=== PATIENT | female | born 1970 | race American Indian/Alaskan Native ===

== ENCOUNTER 2016-08-29 12:39 | Emergency (ER) | payer SELFPAY ==
[2016-08-29 12:50] VITALS: TEMP 98.8
[2016-08-29] MEDS ORDERED: Sodium Chloride 0.9% 2,000 ML IV STA (14:00)
--- NOTE | 2016-08-29 14:02 | ED PDOC ---
Arrival/HPI - General Chief Complaint: GI Problem Time Seen by Provider: 08/29/16 12:59 Historian: Patient - History of Present Illness Narrative History of Present Illness (Text): 08/29/16 14:04 A 46 year old female, whose past medical history includes hypertension, presents to the emergency department complaining of weakness, slight headache and thirst while working outside in the heat today. Patient denies any other complaints at this time. Symptom Onset: Sudden Symptom Course: Unchanged Activities at Onset: Light Context: Work Past Medical History - Provider Review Nursing Documentation Reviewed: Yes - Infectious Disease Hx of Infectious Diseases: None - Cardiac Hx Hypertension: Yes - Psychiatric Hx Substance Use: No - Surgical History Hx Tubal Ligation: Yes Other/Comment: hernia surgery as per patient - Anesthesia Hx Anesthesia: Yes Hx Anesthesia Reactions: No Hx Malignant Hyperthermia: No Family/Social History - Physician Review Nursing Documentation Reviewed: Yes Family/Social History: No Known Family HX Smoking Status: Never Smoked Hx Alcohol Use: No Hx Substance Use: No Allergies/Home Meds Allergies/Adverse Reactions: Allergies No Known Allergies Allergy (Verified 08/29/16 12:46) Home Medications: Home Meds Medication Instructions Recorded Confirmed amLODIPine [Norvasc] 5 mg PO DAILY 08/29/16 08/29/16 Physical Exam - Physical Exam Narrative Physical Exam (Text): 08/29/16 14:03- Review of Systems Constitutional: Present: dizziness, weakness absent: Weight Change, Fevers Eyes: Normal ENT: Normal Respiratory: Normal absent: SOB, Cough, Sputum Cardiovascular: Normal absent: Chest pain, Palpitations, Syncope Gastrointestinal: absent: Abdominal pain, Diarrhea, Nausea, vomiting Genitourinary: Normal. absent: Dysuria, Frequency, Hematuria Musculoskeletal: Normal. absent: Arthralgias, Back Pain, Neck Pain Skin: Normal Neurological: Present: headache absent: Focal Weakness Endocrine: Normal Hemo/Lymphatic: Normal Psychiatric: Normal - Physical exam Patient appears age appropriate, speaking full sentences without difficulty - Systems Exam Head: Present: Atraumatic, Normocephalic Pupils: Present: PERRL Extraocular Muscles: Present: EOMI Conjunctiva: Present: Normal Mouth: Present: Moist Mucous Membranes Neck: Present: Normal Range of Motion. No: MIDLINE TENDERNESS, Paraspinal Tenderness Respiratory/Chest: Present: Clear to Auscultation, Good Air Exchange. No: Respiratory Distress, Accessory Muscle Use, Tachypnic Cardiovascular: Present: Regular Rate and Rhythm, Normal S1, S2, Peripheral Pulses Present. No: Murmurs Abdomen: Present: Normal Bowel Sounds, No: Tenderness, Peritoneal Signs, Rebound, Guarding, Distention Back: Present: Normal Inspection. No: Midline Tenderness, Paraspinal Tenderness Upper Extremity: Present: Normal Inspection. No: Cyanosis, Edema Lower Extremity: Present: Normal Inspection. No: Edema Neurological: Present: GCS=15, Speech Normal, cranial nerves II through XII fully intact with no cerebellar abnormality, neuro-sensory fully intact. No focal neurological deficits. Skin: Present: Warm, Dry, Normal Color. No: Rashes Lymphatic: Present: OX3, NI, NC Psychiatric: Present: Alert, Oriented x 3, Normal Insight, Normal Concentration Vital Signs Reviewed: Yes Vital Signs Temp Pulse Resp BP Pulse Ox 08/29/16 15:29 80 16 115/71 100 08/29/16 14:17 89 18 116/79 99 08/29/16 12:49 98.8 F 93 H 19 118/82 99 Temperature: Afebrile Blood Pressure: Normal Pulse: Regular Respiratory Rate: Normal Appearance: Positive for: Well-Appearing, Non-Toxic, Comfortable Pain Distress: None Mental Status: Positive for: Alert and Oriented X 3 Medical Decision Making ED Course and Treatment: 08/29/16 14:01 Impression: A 46 year old female, whose past medical history includes hypertension, presents to the emergency department complaining of weakness, slight headache and thirst while working outside in the heat today. No acute findings on physical exam. Differential Diagnosis included but are not limited to: dehydration vs. heat exhaustion Plan: -- labs -- IV fluids -- Reassess and disposition Prior Visits: Notes and results from previous visits were reviewed. Patient last reported to the emergency department on 07/15/16 for evaluation of mid sternal chest pain. Progress Notes: 08/29/16 15:49 on reevaluation, pt states she feels much better. Denies weakness, dizziness, states her ECHOLS resolved. States she feels comfortable being dc'd home with outpatient f/u Pt states she understands to return to the ER right away for new or worsening symptoms or for inability to f/u with PMD or specialist as instructed. Patient states that she fully agrees with and understands discharge instructions. States that she agrees with the plan and disposition. Verbalized and repeated discharge instructions and plan. I have given the patient opportunity to ask any additional questions. - Lab Interpretations Lab Results: 08/29/16 14:10 08/29/16 14:10 Lab Results 08/29/16 14:10: Sodium 138, Potassium 4.0, Chloride 103, Carbon Dioxide 25, Anion Gap 14, BUN 19, Creatinine 0.9, Est GFR ( Amer) > 60, Est GFR (Non- Af Amer) > 60, Random Glucose 87, Calcium 9.7, Total Bilirubin 0.3, AST 19, ALT 24, Alkaline Phosphatase 48, Total Creatine Kinase 243 H, CK-MB (CK-2) 0.3, CK- MB (CK-2) % Cancelled, Total Protein 7.5, Albumin 4.1, Globulin 3.3, Albumin/ Globulin Ratio 1.2 08/29/16 14:10: PT 10.4, INR 0.96, APTT 25.8 08/29/16 14:10: WBC 7.0 D, RBC 3.62, Hgb 11.1 L, Hct 32.9 L, MCV 90.9, MCH 30.7 , MCHC 33.7, RDW 12.5, Plt Count 225, MPV 9.4, Gran % 63.0, Lymph % (Auto) 30.0 , Rawlins % (Auto) 6.5 H, Eos % (Auto) 0.4 L, Baso % (Auto) 0.1, Gran # 4.38, Lymph # 2.1, Rawlins # 0.5, Eos # 0.0, Baso # 0.01 I have reviewed the lab results: Yes - Medication Orders Current Medication Orders: Sodium Chloride (Sodium Chloride 0.9%) 2,000 mls @ 1,000 mls/hr IV .Q2H STA Stop: 08/29/16 15:59 Last Admin: 08/29/16 14:33 Dose: 1,000 mls/hr - Scribe Statement The provider has reviewed the documentation as recorded by the Vandana Perez Provider Scribe Attestation: All medical record entries made by the Scribe were at my direction and personally dictated by me. I have reviewed the chart and agree that the record accurately reflects my personal performance of the history, physical exam, medical decision making, and the department course for this patient. I have also personally directed, reviewed, and agree with the discharge instructions and disposition. Disposition/Present on Arrival - Present on Arrival Any Indicators Present on Arrival: No History of DVT/PE: No History of Uncontrolled Diabetes: No Urinary Catheter: No History of Decub. Ulcer: No History Surgical Site Infection Following: None - Disposition Have Diagnosis and Disposition been Completed?: Yes Diagnosis: Dehydration Disposition: HOME/ ROUTINE Disposition Time: 15:51 Patient Plan: Discharge Condition: GOOD Discharge Instructions (ExitCare): Heat Exhaustion (ED), Dehydration (ED) Additional Instructions: PLEASE RETURN TO THE EMERGENCY DEPARTMENT FOR NEW OR WORSENING SYMPTOMS. RETURN RIGHT AWAY IF YOU CANNOT FOLLOW UP WITH YOUR PRIMARY CARE DOCTOR, CLINIC, OR SPECIALIST IN 1-2 DAYS. Referrals: Elijah Shannon Jr., MD [Primary Care Provider] - Follow up with primary Forms: WORK NOTE
[2016-08-29 14:21] LABS: ADD MANUAL DIFF? NO
[2016-08-29 14:28] LABS: BASO # 0.01 K/mm3 (0.0-2.0); BASO % 0.1 % (0.0-3.0); EOS % 0.4 % (1.5-5.0); GRAN # 4.38 (1.4-6.5); HEMATOCRIT 32.9 % (36.0-48.0); LYMPH # 2.1 (1.2-3.4); MEAN CELL VOLUME 90.9 fL (80.0-105.0); MEAN CORPUSCULAR HEMOGLOBIN 30.7 pg (25.0-35.0); MEAN CORPUSCULAR HGB CONC 33.7 g/dl (31.0-37.0); MEAN PLATELET VOLUME 9.4 fl (7.0-11.0); MONO # 0.5 (0.1-0.6); MONO % 6.5 % (1.0-6.0); PLATELET COUNT 225 10^3/uL (120.0-450.0); RED CELL DISTRIBUTION WIDTH 12.5 % (11.5-14.5)
[2016-08-29 14:33] LABS: ALB/GLOB RATIO 1.2 (1.1-1.8); ALKALINE PHOSPHATASE 48 U/L (38-133); ALT/SGPT 24 U/L (7-56); AST/SGOT 19 U/L (15-39); BILIRUBIN,TOTAL 0.3 mg/dL (0.2-1.3); BLOOD UREA NITROGEN 19 mg/dL (7-21); CALCIUM 9.7 mg/dL (8.4-10.5); CARBON DIOXIDE 25 mmol/L (21-33); CHLORIDE 103 mmol/L (98-107); GFR AFRICAN-AMERICAN > 60; GLUCOSE,RANDOM 87 mg/dL (70-110); SODIUM 138 mmol/L (132-148); TOTAL PROTEIN 7.5 g/dL (5.8-8.3)
[2016-08-29 14:39] LABS: INR 0.96 (0.93-1.08); PARTIAL THROMBOPLASTIN TIME 25.8 Seconds (23.7-30.8)
[2016-08-29 15:30] VITALS: PULSE 80
[2016-08-29 15:32] VITALS: BP 115/71
[2016-08-29 16:00] VITALS: RESP 18; O2SAT 99
== END 2016-08-29 16:00 | disposition home or self-care (01) ==
LOC: ED 12:39
DX: E86.0 Dehydration (principal)
CPT/HCPCS: 80053; 82550; 82553; 85025; 85610; 85730; 99284; J7040

== ENCOUNTER 2016-11-16 06:26 | Emergency (ER) | payer MEDICAID, OTHER ==
[2016-11-16 06:38] VITALS: RESP 18
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
[2016-11-16] MEDS ORDERED: Naproxen 550 mg Tab PO STA (08:04)
[2016-11-16 08:27] VITALS: BP 109/62; PULSE 84; TEMP 98.1; O2SAT 100
--- NOTE | 2016-11-16 08:58 | RAD ---
PROCEDURE: Radiographs of the Right Shoulder HISTORY: shoulder pain COMPARISON: No prior. FINDINGS: BONES: Normal. No fracture. JOINTS: Normal. Glenohumeral and acromioclavicular joints preserved. No osteoarthritis. SOFT TISSUES: Normal. OTHER FINDINGS: None. IMPRESSION: Normal radiographs of the right shoulder.
== END 2016-11-16 09:18 | disposition home or self-care (01) ==
LOC: ED 06:26
DX: M25.511 Pain in right shoulder (principal); I10 Essential (primary) hypertension

== ENCOUNTER 2017-01-14 22:06 | Emergency (ER) | payer OTHER ==
[2017-01-14 22:19] VITALS: BMI 34.1
[2017-01-14 22:20] VITALS: BP 142/84; PULSE 101; RESP 16; O2SAT 99
--- NOTE | 2017-01-14 22:39 | ED PDOC ---
Arrival/HPI - General Time Seen by Provider: 01/14/17 22:13 Historian: Patient - History of Present Illness Narrative History of Present Illness (Text): 01/14/17 22:15 Lauren Decker is a 46 year old female, whose past medical history includes hypertension, who presents to the emergency department complaining of mild intermittent dizziness of the past few days. Patient states that she was on amlodipine 5 mg but has been non-compliant with medication because she ran out. Patient states that she presents to the emergency department because she wants a refill of her medications and is not interested in any workup, EKG, or blood tests. Of note, patient has worked through the weekend uneventfully with her full 8-10 hours shifts. Patient denies any association with pre-syncopal lightheadedness, vertigo, vomiting, chest pain, nausea, neurological deficit, palpitations, or any other complaints at this time. Time/Duration: < week Symptom Onset: Gradual Symptom Course: Intermittent Activities at Onset: Light Context: Home Past Medical History - Provider Review Nursing Documentation Reviewed: Yes - Travel History Have you recently traveled outside [place] w/in the past 3 mons?: No - Infectious Disease Hx of Infectious Diseases: None - Cardiac Hx Hypertension: Yes - Psychiatric Hx Substance Use: No - Surgical History Hx Tubal Ligation: Yes Other/Comment: hernia surgery as per patient - Anesthesia Hx Anesthesia: Yes Hx Anesthesia Reactions: No Hx Malignant Hyperthermia: No Family/Social History - Physician Review Nursing Documentation Reviewed: Yes Family/Social History: No Known Family HX Smoking Status: Never Smoked Hx Alcohol Use: No Hx Substance Use: No Allergies/Home Meds Allergies/Adverse Reactions: Allergies No Known Allergies Allergy (Verified 01/14/17 22:21) Home Medications: Home Meds Medication Instructions Recorded Confirmed amLODIPine [Norvasc] 5 mg PO DAILY 08/29/16 01/14/17 Review of Systems - Physician Review All systems were reviewed & negative as marked: Yes - Review of Systems Constitutional: absent: Fevers, Night Sweats Eyes: absent: Vision Changes ENT: absent: Hearing Changes Respiratory: absent: SOB, Cough Cardiovascular: absent: Chest Pain Gastrointestinal: Vomiting (several episodes on ()), Other ( Positive sick person contact with similar symptoms at work). absent: Abdominal Pain, Hematemesis Genitourinary Female: absent: Dysuria, Frequency Musculoskeletal: absent: Arthralgias, Back Pain Skin: absent: Rash, Pruritis Neurological: Dizziness (for 3 days) Endocrine: absent: Diaphoresis Hemo/Lymphatic: absent: Adenopathy Physical Exam Vital Signs Reviewed: Yes Vital Signs Pulse Resp BP Pulse Ox 01/14/17 22:19 101 H 16 142/84 99 Blood Pressure: Normal Pulse: Tachycardic (146/84 with pulse of 94 while sitting and standing, 148/94 with a pulse of a 98) Respiratory Rate: Normal Appearance: Positive for: Well-Appearing, Non-Toxic, Comfortable Pain Distress: None Mental Status: Positive for: Alert and Oriented X 3 - Systems Exam Head: Present: Atraumatic, Normocephalic Pupils: Present: PERRL Extroacular Muscles: Present: EOMI Conjunctiva: Present: Normal Mouth: Present: Moist Mucous Membranes Neck: Present: Normal Range of Motion Respiratory/Chest: Present: Clear to Auscultation, Good Air Exchange. No: Respiratory Distress, Accessory Muscle Use Cardiovascular: Present: Regular Rate and Rhythm, Normal S1, S2. No: Murmurs Abdomen: Present: Normal Bowel Sounds. No: Tenderness, Distention, Peritoneal Signs Back: Present: Normal Inspection Upper Extremity: Present: Normal Inspection. No: Cyanosis, Edema Lower Extremity: Present: Normal Inspection. No: Edema Neurological: Present: GCS=15, CN II-XII Intact, Speech Normal Skin: Present: Warm, Dry, Normal Color. No: Rashes Psychiatric: Present: Alert, Oriented x 3, Normal Insight, Normal Concentration Medical Decision Making ED Course and Treatment: 01/14/17 22:43 Impression: 46 year old female complaining of mild intermittent dizziness for a few days. Plan: -- Norvasc -- Discharge Progress Notes: 01/14/17 22:46 Patient was dosed and admits to less drinking and less hydration than normal. Stable for discharge - Medication Orders Current Medication Orders: Discontinued Medications Amlodipine Besylate (Norvasc) 5 mg PO STAT STA Stop: 01/14/17 22:28 Last Admin: 01/14/17 22:42 Dose: 5 mg - Scribe Statement The provider has reviewed the documentation as recorded by the Vandana Masters Provider Scribe Attestation: All medical record entries made by the Idrisibkira were at my direction and personally dictated by me. I have reviewed the chart and agree that the record accurately reflects my personal performance of the history, physical exam, medical decision making, and the department course for this patient. I have also personally directed, reviewed, and agree with the discharge instructions and disposition. Disposition/Present on Arrival - Present on Arrival Any Indicators Present on Arrival: No History of DVT/PE: No History of Uncontrolled Diabetes: No Urinary Catheter: No History Surgical Site Infection Following: None - Disposition Have Diagnosis and Disposition been Completed?: Yes Diagnosis: Hypertension, Medication refill Disposition: HOME/ ROUTINE Disposition Time: 22:30 Patient Plan: Discharge Condition: GOOD Discharge Instructions (ExitCare): Hypertension (DC) Print Language: BURMESE Additional Instructions: When dizziy drink more water, when your urine trends clearish in color you are likley more sufficiently hydrated, and you will find dizziness improved. Prescriptions: amLODIPine [Norvasc] 5 mg PO DAILY #30 tab Referrals: Elijah Shannon Jr., MD [Primary Care Provider] - Follow up with primary Forms: Digg (Libyan)
== END 2017-01-14 23:10 | disposition home or self-care (01) ==
LOC: ED 22:06
DX: I10 Essential (primary) hypertension (principal); Z76.0 Encounter for issue of repeat prescription; Z98.51 Tubal ligation status

== ENCOUNTER 2017-10-01 15:05 | Emergency (ER) | payer MEDICAID, OTHER ==
[2017-10-01 15:05] VITALS: BMI 34.1
[2017-10-01 15:29] VITALS: RESP 18
--- NOTE | 2017-10-01 15:49 | ED PDOC ---
Arrival/HPI - General Chief Complaint: Headache Time Seen by Provider: 10/01/17 15:12 Historian: Patient - History of Present Illness Narrative History of Present Illness (Text): 10/01/17 15:42 47yo female with pmhx of hypertension who present to ED requesting refill of her antihypertensives. States she ran out of her medications 2days ago and had headache last night and vomited once last night. Notes that the headache and vomiting resolved last night, but she came to ED for prescriptions. She denies any current headache, neck pain, chest pain, focal weakness, slurred speech, visual changes, nausea, vomiting, abdominal pain, any other complaint. Past Medical History - Provider Review Nursing Documentation Reviewed: Yes - Infectious Disease Hx of Infectious Diseases: None - Reproductive Menopause: No - Cardiac Hx Cardiac Disorders: Yes Hx Hypertension: Yes - Pulmonary Hx Respiratory Disorders: No - Neurological Hx Neurological Disorder: No - HEENT Hx HEENT Disorder: No - Renal Hx Renal Disorder: No - Endocrine/Metabolic Hx Endocrine Disorders: No - Hematological/Oncological Hx Blood Disorders: No - Integumentary Hx Dermatological Disorder: No - Musculoskeletal/Rheumatological Hx Musculoskeletal Disorders: No Hx Falls: No - Gastrointestinal Hx Gastrointestinal Disorders: No - Genitourinary/Gynecological Hx Genitourinary Disorders: No - Psychiatric Hx Psychophysiologic Disorder: No Hx Substance Use: No - Surgical History Hx Tubal Ligation: Yes Other/Comment: hernia surgery as per patient - Anesthesia Hx Anesthesia: Yes Hx Anesthesia Reactions: No Hx Malignant Hyperthermia: No Family/Social History - Physician Review Nursing Documentation Reviewed: Yes Family/Social History: Unknown Family HX Smoking Status: Never Smoked Hx Alcohol Use: No Hx Substance Use: No Allergies/Home Meds Allergies/Adverse Reactions: Allergies acetaminophen [From Tylenol] Allergy (Severe, Verified 10/01/17 15:22) ANAPHYLAXIS Home Medications: Home Meds Medication Instructions Recorded Confirmed Amlodipine Besylate 10 mg PO DAILY 10/01/17 10/01/17 Isosorbide Mononitrate ER [Imdur 30 mg PO DAILY 10/01/17 10/01/17 ER] Review of Systems - Physician Review All systems were reviewed & negative as marked: Yes - Review of Systems Constitutional: Normal, Other (Blood pressure medication refill) Eyes: Normal ENT: Normal Respiratory: Normal Cardiovascular: Normal Gastrointestinal: Normal Genitourinary Female: Normal Musculoskeletal: Normal Skin: Normal Neurological: Normal Endocrine: Normal Hemo/Lymphatic: Normal Psychiatric: Normal Physical Exam Vital Signs Reviewed: Yes Vital Signs Temp Pulse Resp BP Pulse Ox 10/01/17 15:19 99.4 F 88 18 133/90 100 Temperature: Afebrile Blood Pressure: Normal Pulse: Regular Respiratory Rate: Normal Appearance: Positive for: Well-Appearing, Non-Toxic, Comfortable Pain Distress: None Mental Status: Positive for: Alert and Oriented X 3 - Systems Exam Head: Present: Atraumatic, Normocephalic Pupils: Present: PERRL Extroacular Muscles: Present: EOMI Conjunctiva: Present: Normal Mouth: Present: Moist Mucous Membranes Neck: Present: Normal Range of Motion Respiratory/Chest: Present: Clear to Auscultation, Good Air Exchange. No: Respiratory Distress, Accessory Muscle Use Cardiovascular: Present: Regular Rate and Rhythm, Normal S1, S2. No: Murmurs Abdomen: No: Tenderness, Distention, Peritoneal Signs Back: Present: Normal Inspection Upper Extremity: Present: Normal Inspection. No: Cyanosis, Edema Lower Extremity: Present: Normal Inspection. No: Edema Neurological: Present: GCS=15, CN II-XII Intact, Speech Normal Skin: Present: Warm, Dry, Normal Color. No: Rashes Psychiatric: Present: Alert, Oriented x 3, Normal Insight, Normal Concentration Disposition/Present on Arrival - Present on Arrival Any Indicators Present on Arrival: No History of DVT/PE: No History of Uncontrolled Diabetes: No Urinary Catheter: No History of Decub. Ulcer: No History Surgical Site Infection Following: None - Disposition Have Diagnosis and Disposition been Completed?: Yes Diagnosis: Medication refill, Hypertension Disposition: HOME/ ROUTINE Disposition Time: 15:55 Patient Plan: Discharge Condition: STABLE Discharge Instructions (ExitCare): High Blood Pressure in Adults Additional Instructions: Take medication as directed Follow up with your Doctor Return to ED for any new or worsening symptoms Prescriptions: amLODIPine [Norvasc] 5 mg PO DAILY #20 tab Metoprolol Succinate [Toprol Xl] 50 mg PO DAILY #20 tab.er.24h Referrals: Elijah Shannon Jr., MD [Primary Care Provider] - Follow up with primary
[2017-10-01 16:09] VITALS: BP 131/85; PULSE 79; TEMP 98.7; O2SAT 99
== END 2017-10-01 16:26 | disposition home or self-care (01) ==
LOC: ED 15:05
DX: Z76.0 Encounter for issue of repeat prescription (principal); I10 Essential (primary) hypertension

== ENCOUNTER 2017-12-12 14:31 | Emergency (ER) | payer SELFPAY ==
[2017-12-12 14:32] VITALS: BMI 34.1
[2017-12-12 14:43] VITALS: TEMP 98.2
[2017-12-12] MEDS ORDERED: Albuterol 0.083% Inhal Sol (2.5 mg/3 mL) UD IH STA (15:21)
--- NOTE | 2017-12-12 15:25 | ED PDOC ---
Arrival/HPI - General Historian: Patient - History of Present Illness Narrative History of Present Illness (Text): 12/12/17 47 yo female w/PMHx of HTN come in for evaluation of cold sx for past 2-3 days associated with nasal congestion, runny nose, sore throat and dry cough. Pt reports, " pain in throat abd cough have worsen". Pt admits, similar x in family member. Otherwise, pt denies high fever, chills, headache, dizziness, drooling, dyspnea, CP, SOB, wheezing, abd. pain, V/D, back pain, UTI sx. Ambulate to Ed for evaluation, not in any apparent distress. <Aicha Dixon - Last Filed: 12/12/17 16:55> <Coleman Marcelino - Last Filed: 12/12/17 17:54> - General Chief Complaint: Flu-like Symptoms Time Seen by Provider: 12/12/17 15:20 Past Medical History - Provider Review Nursing Documentation Reviewed: Yes - Travel History Have you recently traveled outside [place] w/in the past 3 mons?: No - Infectious Disease Hx of Infectious Diseases: None - Cardiac Hx Cardiac Disorders: Yes Hx Hypertension: Yes - Pulmonary Hx Respiratory Disorders: No - Neurological Hx Neurological Disorder: No - HEENT Hx HEENT Disorder: No - Renal Hx Renal Disorder: No - Endocrine/Metabolic Hx Endocrine Disorders: No - Hematological/Oncological Hx Blood Disorders: No - Integumentary Hx Dermatological Disorder: No - Musculoskeletal/Rheumatological Hx Musculoskeletal Disorders: No Hx Falls: No - Gastrointestinal Hx Gastrointestinal Disorders: No - Genitourinary/Gynecological Hx Genitourinary Disorders: No - Psychiatric Hx Psychophysiologic Disorder: No Hx Substance Use: No - Surgical History Hx Tubal Ligation: Yes - Anesthesia Hx Anesthesia: Yes Hx Anesthesia Reactions: No Hx Malignant Hyperthermia: No <Aicha Dixon - Last Filed: 12/12/17 16:55> Family/Social History - Physician Review Nursing Documentation Reviewed: Yes Family/Social History: No Known Family HX Smoking Status: Never Smoked Hx Alcohol Use: No Hx Substance Use: No <Aicha Dixon - Last Filed: 12/12/17 16:55> Allergies/Home Meds <Aicha Dixon - Last Filed: 12/12/17 16:55> <Coleman Marcelino - Last Filed: 12/12/17 17:54> Allergies/Adverse Reactions: Allergies acetaminophen [From Tylenol] Allergy (Severe, Verified 10/01/17 15:22) ANAPHYLAXIS Home Medications: Home Meds Medication Instructions Recorded Confirmed amLODIPine [Norvasc] 10 mg PO DAILY 12/12/17 12/12/17 Review of Systems - Physician Review All systems were reviewed & negative as marked: Yes - Review of Systems Constitutional: Normal Eyes: Normal ENT: Sore Throat, Rhinorrhea Respiratory: Cough. absent: Sputum, Wheezing Cardiovascular: Normal Gastrointestinal: Normal. absent: Abdominal Pain, Nausea, Vomiting Genitourinary Female: Normal. absent: Dysuria, Frequency Musculoskeletal: Normal. absent: Back Pain Skin: Normal Neurological: Normal Endocrine: Normal Hemo/Lymphatic: Normal Psychiatric: Normal <Aicha Dixon - Last Filed: 12/12/17 16:55> Physical Exam Vital Signs Reviewed: Yes Vital Signs Temp Pulse BP Pulse Ox 12/12/17 14:38 98.2 F 97 H 149/94 H 100 Temperature: Afebrile Blood Pressure: Normal Pulse: Regular Appearance: Positive for: Well-Appearing, Non-Toxic, Comfortable Pain Distress: None Mental Status: Positive for: Alert and Oriented X 3 - Systems Exam Conjunctiva: Present: Normal Ears: Present: NORMAL TM, Normal Canal Mouth: Present: Moist Mucous Membranes, Normal Lips. No: Drooling Pharnyx: Present: ERYTHEMA (mild b/L). No: EXUDATE Nose (Internal): Present: Rhinorrhea (scant clear B/L) Neck: Present: Normal Range of Motion Respiratory/Chest: Present: Clear to Auscultation, Good Air Exchange. No: Respiratory Distress, Accessory Muscle Use Cardiovascular: Present: Regular Rate and Rhythm, Normal S1, S2. No: Murmurs Abdomen: No: Tenderness, Distention, Peritoneal Signs Back: Present: Normal Inspection Upper Extremity: Present: Normal Inspection. No: Cyanosis, Edema Lower Extremity: Present: Normal Inspection. No: Edema Neurological: Present: GCS=15, CN II-XII Intact, Speech Normal Skin: Present: Warm, Dry, Normal Color. No: Rashes Psychiatric: Present: Alert, Oriented x 3, Normal Insight, Normal Concentration <Aicha Dixon - Last Filed: 12/12/17 16:55> Vital Signs Temp Pulse BP Pulse Ox 12/12/17 14:38 98.2 F 97 H 149/94 H 100 <Coleman Marcelino - Last Filed: 12/12/17 17:54> Medical Decision Making ED Course and Treatment: 12/12/17 On re-evaluation, pt is afebrile, hemodynamicaly stable. Non-toxic. PulseOx 100% RA ENT: no acute findings Neck: Supple, (-) JVD Lungs: CTA B/L, BS equal B/L CVS: (+)S1S2, reg. Abd: benign, (-) localized tenderness Neurologicaly intact. Pt has clinical findings c/w acute bronchitis. Pt advised on course of ds. ref. to f/u with PMD in 2-3 days for re-eavl. return to ED if any worsening or new changes. On discharge, pt is asking to refill her BP medication Amlodipine 10 mg daily. Last dose 3 days ago. - Medication Orders Current Medication Orders: Albuterol Sulfate (Albuterol 0.083% Inhal Jess (2.5 Mg/3 Ml) Ud) 2.5 mg IH STAT STA Stop: 12/12/17 15:22 Benzonatate (Tessalon Perles) 100 mg PO STAT STA Stop: 12/12/17 15:22 Prednisone (Prednisone Tab) 60 mg PO STAT STA Stop: 12/12/17 15:22 <Aicha Dixon - Last Filed: 12/12/17 16:55> - Medication Orders Current Medication Orders: Discontinued Medications Albuterol Sulfate (Albuterol 0.083% Inhal Jess (2.5 Mg/3 Ml) Ud) 2.5 mg IH STAT STA Stop: 12/12/17 15:22 Last Admin: 12/12/17 15:45 Dose: 2.5 mg Azithromycin (Zithromax) 500 mg PO STAT STA; Protocol Stop: 12/12/17 15:22 Last Admin: 12/12/17 15:45 Dose: 500 mg Benzonatate (Tessalon Perles) 100 mg PO STAT STA Stop: 12/12/17 15:22 Last Admin: 12/12/17 15:45 Dose: 100 mg Prednisone (Prednisone Tab) 60 mg PO STAT STA Stop: 12/12/17 15:22 Last Admin: 12/12/17 15:45 Dose: 60 mg <RichsoniyaColeman - Last Filed: 12/12/17 17:54> - PA / DATA CENTER ARCHITECT / Resident Statement / has reviewed & agrees with the documentation as recorded. <RichsoniyaColeman - Last Filed: 12/12/17 17:54> Disposition/Present on Arrival - Present on Arrival Any Indicators Present on Arrival: No History of DVT/PE: No History of Uncontrolled Diabetes: No Urinary Catheter: No History of Decub. Ulcer: No History Surgical Site Infection Following: None - Disposition Have Diagnosis and Disposition been Completed?: Yes Disposition Time: 15:22 Patient Plan: Discharge, Transfer To <Aicha Dixon - Last Filed: 12/12/17 16:55> <Coleman Marcelino - Last Filed: 12/12/17 17:54> - Disposition Diagnosis: Bronchitis, Medication refill, Hypertension Disposition: HOME/ ROUTINE Patient Problems: Current Active Problems Problem Status Onset Bronchitis Acute Medication refill Acute Hypertension Acute Condition: STABLE Discharge Instructions (ExitCare): Acute Bronchitis, Medicines for High Blood Pressure Additional Instructions: Encourage fluids Take medication as prescribed follow up with PMD in 2-3 days for re-evaluation. return to ED if any worsening or new changes. Prescriptions: amLODIPine [Norvasc] 5 mg PO DAILY #14 tab Azithromycin [Zithromax] 250 mg PO DAILY #4 tab Benzonatate [Tessalon Perle] 100 mg PO TID #14 capsule Prednisone [Deltasone] 40 mg PO DAILY #6 tablet Forms: [facility] (Tristanian), WORK NOTE
[2017-12-12 23:51] VITALS: BP 134/72; PULSE 82; RESP 18; O2SAT 97
== END 2017-12-12 16:15 | disposition home or self-care (01) ==
LOC: ED 14:31
DX: Z76.0 Encounter for issue of repeat prescription (principal); J40 Bronchitis, not specified as acute or chronic; I10 Essential (primary) hypertension

== ENCOUNTER 2018-01-23 14:42 | Emergency (ER) | payer SELFPAY ==
[2018-01-23 15:11] VITALS: RESP 18; TEMP 98.2; BMI 38.3
--- NOTE | 2018-01-23 15:14 | ED PDOC ---
Arrival/HPI - General Chief Complaint: Med Refill Historian: Patient - History of Present Illness Narrative History of Present Illness (Text): 01/23/18 15:13 47 y/o female, pmh including htn, allergic to tylenol, presents to the Emergency department for refill of her blood pressure medications today. Patient informs running out of her blood pressure medications a few days ago and has been unable to refill since then. Patient reports having her usual headache yesterday without any loss of consciousness or change in severity/characteristic at home, which resolved after taking her headache medication at home. Patient denies any headache today but presents to the ED for her blood pressure medication refill. Patient does not request any medical evaluation for her headache as it resolved, and disagrees with the triage note. Patient currently denies any somatic complaints. Patient denies any fevers, chills, headache, dizziness, chest pain, shortness of breath, abdominal pain, nausea, vomiting, diarrhea, back pain, neck pain, or any other complaints. Time/Duration: Prior to Arrival Symptom Onset: Gradual Activities at Onset: Light Context: Home Past Medical History - Provider Review Nursing Documentation Reviewed: Yes - Infectious Disease Hx of Infectious Diseases: None - Cardiac Hx Cardiac Disorders: Yes Hx Hypertension: Yes - Pulmonary Hx Respiratory Disorders: No - Neurological Hx Neurological Disorder: No - HEENT Hx HEENT Disorder: No - Renal Hx Renal Disorder: No - Endocrine/Metabolic Hx Endocrine Disorders: No - Hematological/Oncological Hx Blood Disorders: No - Integumentary Hx Dermatological Disorder: No - Musculoskeletal/Rheumatological Hx Musculoskeletal Disorders: No Hx Falls: No - Gastrointestinal Hx Gastrointestinal Disorders: No - Genitourinary/Gynecological Hx Genitourinary Disorders: No - Psychiatric Hx Psychophysiologic Disorder: No Hx Substance Use: No - Surgical History Hx Tubal Ligation: Yes - Anesthesia Hx Anesthesia: Yes Hx Anesthesia Reactions: No Hx Malignant Hyperthermia: No Family/Social History - Physician Review Nursing Documentation Reviewed: Yes Family/Social History: Unknown Family HX Smoking Status: Never Smoked Hx Alcohol Use: No Hx Substance Use: No Allergies/Home Meds Allergies/Adverse Reactions: Allergies acetaminophen [From Tylenol] Allergy (Severe, Verified 01/23/18 15:11) ANAPHYLAXIS Review of Systems - Physician Review All systems were reviewed & negative as marked: Yes - Review of Systems Constitutional: absent: Fevers Eyes: absent: Vision Changes Respiratory: absent: SOB, Cough Cardiovascular: absent: Chest Pain, PELAYO Gastrointestinal: absent: Abdominal Pain, Diarrhea, Nausea, Vomiting Genitourinary Female: absent: Dysuria, Urine Output Changes Musculoskeletal: absent: Back Pain, Neck Pain Skin: absent: Rash Neurological: absent: Headache, Dizziness Endocrine: absent: Polyuria Psychiatric: absent: Anxiety, Depression Physical Exam Vital Signs Reviewed: Yes Vital Signs Temp Pulse Resp BP Pulse Ox 01/23/18 15:06 98.2 F 103 H 18 145/97 H 96 Temperature: Afebrile Blood Pressure: Normal Pulse: Regular Respiratory Rate: Normal Appearance: Positive for: Well-Appearing, Non-Toxic, Comfortable Pain Distress: None Mental Status: Positive for: Alert and Oriented X 3 - Systems Exam Head: Present: Atraumatic, Normocephalic Pupils: Present: PERRL Extroacular Muscles: Present: EOMI Conjunctiva: Present: Normal Mouth: Present: Moist Mucous Membranes Neck: Present: Normal Range of Motion Respiratory/Chest: Present: Clear to Auscultation, Good Air Exchange. No: Respiratory Distress, Accessory Muscle Use Cardiovascular: Present: Regular Rate and Rhythm, Normal S1, S2. No: Murmurs Abdomen: No: Tenderness, Distention, Peritoneal Signs Back: Present: Normal Inspection Upper Extremity: Present: Normal Inspection. No: Cyanosis, Edema Lower Extremity: Present: Normal Inspection. No: Edema Neurological: Present: GCS=15, CN II-XII Intact, Speech Normal, Motor Func Grossly Intact, Gait Normal, Memory Normal Skin: Present: Warm, Dry, Normal Color. No: Rashes Psychiatric: Present: Alert, Oriented x 3, Normal Insight, Normal Concentration Medical Decision Making ED Course and Treatment: 01/23/18 15:13 Impression: 47 year old female presents to the Emergency department for blood pressure medication refill. Plan: -- BP medication refill -- Reassess and disposition 01/23/18 16:00 -Urine hcg is negative -I offered labs and radiology studies but she declined, she only request medication refill and will see her own pmd. I advised her to return to the ER for any recurrent headache. -Discharge home with norvasc and toprol as her usual antihypertensive medication, return to the ER for any new or worsening signs or symptoms. - PA / HEALTH CARE COORDINATOR / Resident Statement / has reviewed & agrees with the documentation as recorded. - Scribe Statement The provider has reviewed the documentation as recorded by the Scribe Blu Amezcua. All medical record entries made by the Scribe were at my direction and personally dictated by me. I have reviewed the chart and agree that the record accurately reflects my personal performance of the history, physical exam, medical decision making, and the department course for this patient. I have also personally directed, reviewed, and agree with the discharge instructions and disposition. Disposition/Present on Arrival - Present on Arrival Any Indicators Present on Arrival: No History of DVT/PE: No History of Uncontrolled Diabetes: No Urinary Catheter: No History of Decub. Ulcer: No History Surgical Site Infection Following: None - Disposition Have Diagnosis and Disposition been Completed?: Yes Diagnosis: Medication refill, HTN (hypertension) Disposition: HOME/ ROUTINE Disposition Time: 16:01 Patient Plan: Discharge Condition: GOOD Additional Instructions: -Discharge home with norvasc and toprol as her usual antihypertensive medication, return to the ER for any new or worsening signs or symptoms. Prescriptions: amLODIPine [Norvasc] 5 mg PO DAILY #30 tab Metoprolol Succinate XL [Toprol XL] 50 mg PO DAILY #30 tab Referrals: [facility] [place] [Outside] - Follow up with primary Forms: [facility] (Swiss), WORK NOTE
[2018-01-23 15:51] VITALS: BP 141/96; PULSE 85; O2SAT 100
== END 2018-01-23 16:11 | disposition home or self-care (01) ==
LOC: ED 14:42
DX: Z76.0 Encounter for issue of repeat prescription (principal); I10 Essential (primary) hypertension

== ENCOUNTER 2018-02-03 23:20 | Emergency (ER) | payer SELFPAY ==
[2018-02-03 23:37] VITALS: BMI 36.0
[2018-02-03 23:45] VITALS: RESP 18
--- NOTE | 2018-02-03 23:57 | ED PDOC ---
Arrival/HPI - General Chief Complaint: Back Pain Time Seen by Provider: 02/03/18 23:35 Historian: Patient - History of Present Illness Narrative History of Present Illness (Text): 02/03/18 23:50 A 47 year old female, whose past medical history includes hypertension, presents to the emergency department complaining of lower back pain and tailbone discomfort since 2 days ago. Patient reports she accidentally slipped and fell to the ground. Patient states she is able to ambulate without difficulty and denies any weakness, paresthesia, fever, chills, shortness of breath, chest pain, diarrhea, nausea, vomiting, change in bowel or urinary habit, back pain, neck pain, headache, dizziness, or any other complaints. Time/Duration: Other (2 days) Symptom Onset: Gradual Activities at Onset: Light Context: Home, Slipped Past Medical History - Provider Review Nursing Documentation Reviewed: Yes - Infectious Disease Hx of Infectious Diseases: None - Cardiac Hx Cardiac Disorders: Yes Hx Hypertension: Yes - Pulmonary Hx Respiratory Disorders: No - Neurological Hx Neurological Disorder: No - HEENT Hx HEENT Disorder: No - Renal Hx Renal Disorder: No - Endocrine/Metabolic Hx Endocrine Disorders: No - Hematological/Oncological Hx Blood Disorders: No - Integumentary Hx Dermatological Disorder: No - Musculoskeletal/Rheumatological Hx Musculoskeletal Disorders: No Hx Falls: No - Gastrointestinal Hx Gastrointestinal Disorders: No - Genitourinary/Gynecological Hx Genitourinary Disorders: No - Psychiatric Hx Psychophysiologic Disorder: No Hx Substance Use: No - Surgical History Hx Tubal Ligation: Yes - Anesthesia Hx Anesthesia: Yes Hx Anesthesia Reactions: No Hx Malignant Hyperthermia: No Family/Social History - Physician Review Nursing Documentation Reviewed: Yes Family/Social History: No Known Family HX Smoking Status: Never Smoked Hx Alcohol Use: No Hx Substance Use: No Allergies/Home Meds Allergies/Adverse Reactions: Allergies acetaminophen [From Tylenol] Allergy (Severe, Verified 02/03/18 23:38) ANAPHYLAXIS ibuprofen Allergy (Verified 02/03/18 23:38) ANAPHYLAXIS Home Medications: Home Meds Medication Instructions Recorded Confirmed RX: Aspirin [Lo-Dose Aspirin EC] 81 mg PO DAILY 02/03/18 02/03/18 RX: Metoprolol Succinate [Toprol 25 mg PO DAILY 02/03/18 02/03/18 Xl] Review of Systems - Physician Review All systems were reviewed & negative as marked: Yes - Review of Systems Constitutional: absent: Fevers, Night Sweats Respiratory: absent: SOB Cardiovascular: absent: Chest Pain Gastrointestinal: absent: Diarrhea, Nausea, Vomiting Genitourinary Female: absent: Urine Output Changes (no changes in bowel or urinary habit) Musculoskeletal: Back Pain (+lower back pain and tailbone discomfort). absent: Neck Pain Neurological: Other (denies any weakness or parasthesia). absent: Headache, Dizziness Physical Exam Vital Signs Reviewed: Yes Vital Signs Temp Pulse Resp BP Pulse Ox 02/03/18 23:44 98.2 F 100 H 18 143/85 99 Temperature: Afebrile Blood Pressure: Normal Pulse: Tachycardic Respiratory Rate: Normal Appearance: Positive for: Well-Appearing, Non-Toxic, Comfortable Pain Distress: None Mental Status: Positive for: Alert and Oriented X 3 - Systems Exam Head: Present: Atraumatic, Normocephalic Pupils: Present: PERRL Extroacular Muscles: Present: EOMI Conjunctiva: Present: Normal Mouth: Present: Moist Mucous Membranes Neck: Present: Normal Range of Motion Respiratory/Chest: Present: Clear to Auscultation, Good Air Exchange. No: Respiratory Distress, Accessory Muscle Use Cardiovascular: Present: Regular Rate and Rhythm, Normal S1, S2. No: Murmurs Abdomen: No: Tenderness, Distention, Peritoneal Signs Back: Present: Normal Inspection, Other (+lower paralumbar tenderness / no dorsal spinal tenderness). No: CVA Tenderness, Midline Tenderness Upper Extremity: Present: Normal Inspection. No: Cyanosis, Edema Lower Extremity: Present: Normal Inspection. No: Edema Neurological: Present: GCS=15, CN II-XII Intact, Speech Normal Skin: Present: Warm, Dry, Normal Color. No: Rashes Psychiatric: Present: Alert, Oriented x 3, Normal Insight, Normal Concentration Medical Decision Making ED Course and Treatment: 02/03/18 23:51 Impression: 47 year old female presenting to the emergency room for lower back pain. Plan: -- Ultram -- Xray of LS Spin with OBL -- Xray of Sacrum and/or coccyx -- Reassess and disposition Prior Visits: Notes and results from previous visits were reviewed. Progress Notes: 02/04/18 02:06 Procedure: Xray of LS Spine with OBL and Xray of Sacrum and/or coccyx Impression: no acute process. Reviewed by me. - RAD Interpretation Radiology Orders: 02/03/18 23:51 LS SPINE WITH OBL > 18 YRS OLD [RAD] Stat 02/03/18 23:52 SACRUM &/or COCCYX (MIN 2VW) [RAD] Stat - Scribe Statement The provider has reviewed the documentation as recorded by the Scribkira Masters All medical record entries made by the Scribe were at my direction and personally dictated by me. I have reviewed the chart and agree that the record accurately reflects my personal performance of the history, physical exam, medical decision making, and the department course for this patient. I have also personally directed, reviewed, and agree with the discharge instructions and disposition. Disposition/Present on Arrival - Present on Arrival Any Indicators Present on Arrival: No History of DVT/PE: No History of Uncontrolled Diabetes: No Urinary Catheter: No History of Decub. Ulcer: No History Surgical Site Infection Following: None - Disposition Have Diagnosis and Disposition been Completed?: Yes Diagnosis: Low back strain, Coccygeal contusion Disposition: HOME/ ROUTINE Disposition Time: 02:36 Patient Plan: Discharge Condition: GOOD Discharge Instructions (ExitCare): Lumbar Muscle Strain (DC), Coccyx Injury (DC) Additional Instructions: Take meds as prescribed/use donut cushion to sit on/rest/no strenuous physical activity/follow up with your doctor Prescriptions: Tramadol HCl [Ultram] 50 mg PO Q6 PRN #12 tab PRN Reason: Pain, Moderate (4-7) Forms: [facility] ([place]ian), WORK NOTE
[2018-02-04 02:12] VITALS: PULSE 90; O2SAT 100
[2018-02-04] MEDS ORDERED: Lidocaine 5% Patch TD ONE (02:13)
[2018-02-04 04:17] VITALS: BP 114/60; TEMP 98.4
--- NOTE | 2018-02-04 08:51 | RAD ---
Date of service: 02/04/2018 PROCEDURE: Radiographs of the Lumbar Spine. HISTORY: Injury COMPARISON: No prior. FINDINGS: BONES: There is normal alignment of the lumbar vertebral bodies. There is normal lumbar lordosis. There is no acute fracture, spondylolysis or spondylolisthesis. DISC SPACES: There is mild multilevel degenerative disc disease with anterior spurring, reduced disc heights and multilevel facet arthropathy, worse at L5-S1. OTHER FINDINGS: None. IMPRESSION: No acute fracture, spondylolysis or spondylolisthesis.
--- NOTE | 2018-02-04 08:56 | RAD ---
Date of service: 02/04/2018 PROCEDURE: Radiographs of the Sacrum and Coccyx HISTORY: Fall COMPARISON: None available. TECHNIQUE: Frontal and lateral views of the sacrum and coccyx FINDINGS: BONES: Sacrum and coccyx unremarkable. No acute displaced fracture or focal lesion. SACROILIAC JOINTS: The sacroiliac joints are normal. There is mild osteitis pubis. OTHER FINDINGS: None. IMPRESSION: No acute fracture or dislocation.
== END 2018-02-04 02:49 | disposition home or self-care (01) ==
LOC: ED 23:20
DX: S39.012A Strain of muscle, fascia and tendon of lower back, initial encounter (principal); S30.0XXA Contusion of lower back and pelvis, initial encounter; W01.0XXA Fall on same level from slipping, tripping and stumbling without subsequent striking against object, initial encounter; Y92.9 Unspecified place or not applicable

== ENCOUNTER 2018-04-04 20:37 | Emergency (ER) | payer SELFPAY ==
[2018-04-04 20:38] VITALS: BMI 36.0
[2018-04-04 20:56] VITALS: RESP 18; O2SAT 100
[2018-04-04 21:06] LABS: BASO # 0.01 K/mm3 (0.0-2.0); BASO % 0.1 % (0.0-3.0); EOS # 0.1 (0.0-0.7); EOS % 0.6 % (1.5-5.0); GRAN # 5.12 (1.4-6.5); GRAN % 55.1 % (50.0-68.0); HEMOGLOBIN 11.5 g/dL (12.0-16.0); LYMPH # 3.8 (1.2-3.4); LYMPH % 40.4 % (22.0-35.0); MEAN CELL VOLUME 90.4 fl (80.0-105.0); MEAN CORPUSCULAR HEMOGLOBIN 29.9 pg (25.0-35.0); MEAN PLATELET VOLUME 8.8 fl (7.0-11.0); MONO # 0.4 (0.1-0.6); MONO % 3.8 % (1.0-6.0); RBC 3.85 10^6/uL (3.5-6.1); WHITE BLOOD COUNT 9.3 10^3/uL (4.5-11.0)
[2018-04-04 21:18] LABS: ALB/GLOB RATIO 1.2 (1.1-1.8); ALBUMIN 4.3 g/dL (3.0-4.8); ALT/SGPT 33 U/L (7-56); AST/SGOT 26 U/L (14-36); BLOOD UREA NITROGEN 15 mg/dL (7-21); CALCIUM 9.3 mg/dL (8.4-10.5); GFR NON-AFRICAN AMERICAN 60
[2018-04-04 21:29] LABS: TROPONIN I < 0.01 ng/mL
--- NOTE | 2018-04-04 23:28 | ED PDOC ---
Arrival/HPI - General Chief Complaint: Chest Pain Time Seen by Provider: 04/04/18 20:44 Historian: Patient - History of Present Illness Narrative History of Present Illness (Text): 04/04/18 20:45 Lauren Decker is a 47 year old female who presents to the Emergency department complaining of intermittent, sharp, sub-sternal chest pain since this morning. Patient denies any fever, cough, or shortness of breath. Patient states she took pain medication she had at home but does not recall the name, but reports it helped with her symptoms. Patient denies any other complaints. Symptom Onset: Gradual Symptom Course: Unchanged Activities at Onset: Light Context: Home Past Medical History - Provider Review Nursing Documentation Reviewed: Yes - Infectious Disease Hx of Infectious Diseases: None - Cardiac Hx Cardiac Disorders: Yes Hx Hypertension: Yes - Pulmonary Hx Respiratory Disorders: No - Neurological Hx Neurological Disorder: No - HEENT Hx HEENT Disorder: No - Renal Hx Renal Disorder: No - Endocrine/Metabolic Hx Endocrine Disorders: No - Hematological/Oncological Hx Blood Disorders: No - Integumentary Hx Dermatological Disorder: No - Musculoskeletal/Rheumatological Hx Musculoskeletal Disorders: No Hx Falls: No - Gastrointestinal Hx Gastrointestinal Disorders: No - Genitourinary/Gynecological Hx Genitourinary Disorders: No - Psychiatric Hx Psychophysiologic Disorder: No Hx Substance Use: No - Surgical History Hx Tubal Ligation: Yes - Anesthesia Hx Anesthesia: Yes Hx Anesthesia Reactions: No Hx Malignant Hyperthermia: No Family/Social History - Physician Review Nursing Documentation Reviewed: Yes Family/Social History: Unknown Family HX Smoking Status: Never Smoked Hx Alcohol Use: No Hx Substance Use: No Allergies/Home Meds Allergies/Adverse Reactions: Allergies acetaminophen [From Tylenol] Allergy (Severe, Verified 04/04/18 20:44) ANAPHYLAXIS ibuprofen Allergy (Verified 04/04/18 20:44) ANAPHYLAXIS Home Medications: Home Meds Medication Instructions Recorded Confirmed Aspirin [Lo-Dose Aspirin EC] 81 mg PO DAILY 02/03/18 04/04/18 Metoprolol Succinate [Toprol Xl] 25 mg PO DAILY 02/03/18 04/04/18 Review of Systems - Physician Review All systems were reviewed & negative as marked: Yes - Review of Systems Constitutional: Normal. absent: Fevers Eyes: Normal ENT: Normal Respiratory: Normal. absent: SOB, Cough Cardiovascular: Chest Pain Gastrointestinal: Normal. absent: Abdominal Pain, Diarrhea, Nausea, Vomiting Genitourinary Female: Normal. absent: Dysuria, Frequency, Hematuria, Urine Output Changes Musculoskeletal: Normal. absent: Back Pain, Neck Pain Skin: Normal. absent: Rash Neurological: Normal. absent: Headache, Dizziness Endocrine: Normal Hemo/Lymphatic: Normal Psychiatric: Normal Physical Exam Vital Signs Reviewed: Yes Vital Signs Temp Pulse Resp BP Pulse Ox 04/04/18 20:55 99.1 F 81 18 160/98 H 100 Temperature: Afebrile Blood Pressure: Hypertensive Pulse: Regular Respiratory Rate: Normal Appearance: Positive for: Well-Appearing, Non-Toxic, Comfortable Pain Distress: None Mental Status: Positive for: Alert and Oriented X 3 - Systems Exam Head: Present: Atraumatic, Normocephalic Pupils: Present: PERRL Extroacular Muscles: Present: EOMI Conjunctiva: Present: Normal Mouth: Present: Moist Mucous Membranes Neck: Present: Normal Range of Motion Respiratory/Chest: Present: Clear to Auscultation, Good Air Exchange. No: Respiratory Distress, Accessory Muscle Use Cardiovascular: Present: Regular Rate and Rhythm, Normal S1, S2. No: Murmurs Abdomen: No: Tenderness, Distention, Peritoneal Signs Back: Present: Normal Inspection Upper Extremity: Present: Normal Inspection. No: Cyanosis, Edema Lower Extremity: Present: Normal Inspection. No: Edema Neurological: Present: GCS=15, CN II-XII Intact, Speech Normal Skin: Present: Warm, Dry, Normal Color. No: Rashes Psychiatric: Present: Alert, Oriented x 3, Normal Insight, Normal Concentration Medical Decision Making ED Course and Treatment: 04/04/18 20:45 Impression: 47 year old female complaining of intermittent sharp substernal chest pain. Plan: -- EKG -- Chest X-ray -- Labs, cardiac enzymes -- Urinalysis -- Reassess and disposition Prior Visits: Notes and results from previous visits were reviewed. Progress Notes: Reviewed EKG, NSR at [address]-segment elevations or depressions, no T-wave inversions, normal intervals. 04/04/18 21:15 Chest X-ray reviewed, shows no acute processes. 04/04/18 22:40 On re-evaluation, patient feels better and is in no acute distress. I have discussed the results and plan with the patient, who expresses understanding. Patient in agreement with plan to be discharged home. Patient is stable for discharge. Patient was instructed to follow up with physician or return if symptoms worsen or new concerning symptoms arise. - Lab Interpretations Lab Results: Troponin I < 0.01 ng/mL 04/04/18 21:03 Total Bilirubin 0.3 mg/dL (0.2-1.3) 04/04/18 21:03 AST 26 U/L (14-36) 04/04/18 21:03 ALT 33 U/L (7-56) 04/04/18 21:03 Alkaline Phosphatase 72 U/L (38-126) 04/04/18 21:03 Total Protein 7.7 g/dL (5.8-8.3) 04/04/18 21:03 Albumin 4.3 g/dL (3.0-4.8) 04/04/18 21:03 Globulin 3.4 gm/dL 04/04/18 21:03 Albumin/Globulin Ratio 1.2 (1.1-1.8) 04/04/18 21:03 I have reviewed the lab results: Yes - RAD Interpretation Radiology Orders: 04/04/18 20:46 CHEST PORTABLE [RAD] Stat [employer] Supervisor: ED Physician - EKG Interpretation Interpreted by ED Physician: Yes Type: 12 lead EKG - Scribe Statement The provider has reviewed the documentation as recorded by the Vandana Catalan Provider Scribe Attestation: All medical record entries made by the Scribe were at my direction and personally dictated by me. I have reviewed the chart and agree that the record accurately reflects my personal performance of the history, physical exam, medical decision making, and the department course for this patient. I have also personally directed, reviewed, and agree with the discharge instructions and disposition. Disposition/Present on Arrival - Present on Arrival Any Indicators Present on Arrival: No History of DVT/PE: No History of Uncontrolled Diabetes: No Urinary Catheter: No History of Decub. Ulcer: No History Surgical Site Infection Following: None - Disposition Have Diagnosis and Disposition been Completed?: Yes Diagnosis: Non-cardiac chest pain, Hypertension Disposition: HOME/ ROUTINE Disposition Time: 22:00 Condition: GOOD Discharge Instructions (ExitCare): High Blood Pressure in Adults, Chest Pain That Is Not Caused by the Heart (DC), Chest Pain (ED) Additional Instructions: LAUREN DECKER, thank you for letting us take care of you today. The emergency medical care you received today was directed at your acute symptoms. If you were prescribed any medication, please fill it and take as directed. It may take several days for your symptoms to resolve. Return to the Emergency Department if your symptoms worsen, do not improve, or if you have any other problems. Please contact your doctor or call one of the physicians/clinics you have been referred to that are listed on the Patient Visit Information form that is included in your discharge packet. Bring any paperwork you were given at discharge with you along with any medications you are taking to your follow up visit. Our treatment cannot replace ongoing medical care by a primary care provider outside of the emergency department. Thank you for allowing the [facility] team to be part of your care today. Follow up with your primary care doctor in 3-4 days for re-evaluation and further management. Prescriptions: amLODIPine [Norvasc] 5 mg PO DAILY #7 tab Referrals: Elijah Shannon Jr., MD [Primary Care Provider] - Follow up with primary Forms: [employer] (Wallisian)
[2018-04-04 23:44] VITALS: BP 155/82; PULSE 86; TEMP 98.9
--- NOTE | 2018-04-05 09:02 | RAD ---
HISTORY: chest pain COMPARISON: Chest x-ray performed 06/17/15 TECHNIQUE: Chest, one view. FINDINGS: Examination limited by habitus and hypoinflation. LUNGS: No focal consolidation. Please note that chest x-ray has limited sensitivity for the detection of pulmonary masses. PLEURA: No significant pleural effusion identified. No definite pneumothorax . CARDIOVASCULAR: Heart size appears within normal limits. Ectatic aorta. OSSEOUS STRUCTURES: No acute osseous abnormality identified. VISUALIZED UPPER ABDOMEN: Unremarkable. OTHER FINDINGS: None. IMPRESSION: No focal consolidation.
--- NOTE | 2018-04-05 09:27 | CARD ---
APPROVED REPORT Date of service: 04/04/2018 EKG Measurement Heart [id number] <Conclusion> Normal sinus rhythm Voltage criteria for left ventricular hypertrophy Prolonged QT Abnormal ECG
== END 2018-04-04 23:06 | disposition home or self-care (01) ==
LOC: ED 20:37
DX: R07.89 Other chest pain (principal); I10 Essential (primary) hypertension